=== PATIENT | female | born 2000 | race Caucasian/White ===

== ENCOUNTER 2021-03-24 17:23 | Outpatient (CLI) | payer BC, SELFPAY ==
--- NOTE | ~2021-03-24 | XR_ITS ---
EXAMINATION: XR ribs BI 3V w CXR 2V INDICATION: Pleurodynia TECHNIQUE: PA and lateral views of the chest and 3 views of the bilateral ribs were obtained. COMPARISON: None. FINDINGS: There is gas shaped curvature of the spine. The lungs are free of acute opacities. The card iomediastinal silhouette is normal. There is no pleural effusion or pneumothorax. No displaced rib fr acture is identified. IMPRESSION: 1. No acute cardiopulmonary abnormality or evidence of displaced rib fracture. Reviewed, dictated and finalized at location A.
== END 2021-03-24 17:24 | disposition home or self-care (01) ==
LOC: ANHIMG 17:31
PROVIDERS: PCP Family Medicine; Visit Provider Family Medicine
DX: R07.81 Pleurodynia (principal)
CPT/HCPCS: 71046; 71110